=== PATIENT | male | born 1970 | race Caucasian/White ===

== ENCOUNTER → 2024-11-20 10:32 | Outpatient (REF) | payer SELFPAY | LOC: HWRAD 10:32 | PROVIDERS: ATTENDING PHYSICIAN Family Medicine | DX: E78.00 Pure hypercholesterolemia, unspecified (principal) | CPT/HCPCS: 75571 ==

== ENCOUNTER 2024-11-26 00:48 | Emergency (ER) | payer OTHER, SELFPAY ==
[2024-11-26 00:55] VITALS: BP 118/72
--- NOTE | 2024-11-26 01:46 | ED.GENMED ---
History of Present Illness
General
Chief Complaint: Extremity Pain (non-traumatic)
Source: patient
Time Seen by Provider: 11/26/24 01:26
History of Present Illness
History of Present Illness:
54-year-old male with past medical history of hyperlipidemia presenting to the ER for evaluation of intermittent paresthesia from the elbow distal for the last 2 to 3 days noting that the symptoms are intermittent, seemingly exacerbated when he is
holding his arm up away from his body, have made any worse with physical activity. He denies any trauma, focal weakness or numbness, chest pain, shortness of breath, lightheadedness or dizziness or any other concerns. No history of similar. He
does note a few days ago he had a CT coronary which showing minimal to mild cardiac disease. Family history included in his grandfather. Social history does noncontributory. Patient states his biggest reason for coming to the ER today was to
ensure his heart was okay.
Past History
Past History
ED Past Medical History: Hypercholesterolemia
ED Past Surgical History: None
Social History
Tobacco: Non-smoker
Alcohol: Occasional
Drug: None
Personal:
Living: with family
Employment: Employed
Family History
Family History: Hypertension
Review of Systems
Review of Systems
All Other Systems: ROS reviewed and negative except as documented in HPI and ROS
Phy Exam
Physical Exam
Physical Exam:
GENERAL: Alert , in no apparent distress
HEAD: Normocephalic atraumatic
EYE: conjunctiva clear
NECK: Supple
ENT: o/p clr, mmm.
CARDIAC: Regular rate and rhythm
LUNGS: Clear breath sounds bilaterally, no acute respiratory distress, no wheezes/rales/rhonchi
NEUROLOGICAL: Alert and oriented, moves all extremities, sensation grossly intact to light touch, strength 5 out of 5 bilaterally
SKIN: Warm and dry, skin intact.
MUSCULOSKELETAL: well perfused. Easily palpable radial pulse. Cap refill less than 2 seconds. Full range of motion of the extremity without pain or paresthesia
PSYCH: Normal and appropriate interaction.
Scores
Heart Failure Risk
Heart Failure Risk Score: Not Applicable
Heart Score for Chest Pain Patients
STEMI patient?: Not applicable
Withdrawal Assessment of Alcohol
Withdrawal Assessment Completed?: Not applicable
Course
Orders/Labs/Results
Orders:
Orders
11/26/24 00:59
ECG [Electrocardiogram (*1)] Urgent
Reason for Study: Other
Other Reason for Exam: LEFT LOWER ARM PAIN
11/26/24 01:00
EKG- Treatment ONCE
Vital Signs
Initial and Last Documented VS:
Initial Vital Signs
Temp Pulse Resp BP Pulse Ox
98 F 54 18 118/72 98
11/26/24 00:55 11/26/24 00:55 11/26/24 00:55 11/26/24 00:55 11/26/24 00:55
Last Documented Vital Signs
Temp Pulse Resp BP Pulse Ox
98 F 54 18 118/72 98
11/26/24 00:55 11/26/24 00:55 11/26/24 00:55 11/26/24 00:55 11/26/24 01:47
MDM/Problems Addressed
Differential Diagnosis Includes:
Peripheral Neuropathy
Radiculopathy
Spinal Stenosis
Medial/lateral epicondylitis
Forearm strain
DVT
SVT
Overall, minimal suspicion for ACS
MDM/Problems Addressed:
54-year-old male presenting the ER for intermittent paresthesia from the elbow distal for the last 2 to 3 days, seemingly worse with different positions of the extremity. Asymptomatic here. EKG done in triage shows a sinus bradycardia but no
ischemic changes. I did offer to perform blood work including a troponin however patient declines. He ultimately states he feels comfortable following up with his primary care provider as an outpatient. Discussed return precautions to the ER.
Stable for discharge home.
*Pulse Oximetry
SaO2: 98
Oxygen Mode of Delivery: Room air
Patient hypoxic: no
*EKG
Heart Rate: 52
Rate: bradycardiac
Rhythm: sinus
Jackson: normal axis
Ischemia: no ischemia
*Critical Care Note
Total Time (30-74mins, 75-104mins- exclusive of procedures): Not Applicable
Data Reviewed
Review of Other/Old Records Reveals: Labs, Records and Radiology Studies
ED Attending Note
-
Portions of this chart may have been created with voice recognition software.� Occasional wrong word or��sound alike� substitutions may have occurred due to the inherent limitations of voice recognition software.
Discharge Plan
Departure
Patient Disposition: Home (Routine Discharge)
Date of Disposition: 11/26/24
Time of Disposition: 01:46
Patient with high blood pressure during this ER visit?: No
Discharge Problem:
Paresthesia of left arm
Instructions: Peripheral neuropathy
Prescriptions:
No Action
No Meds [No Current Medications]
0
ibuprofen 600 MG tablet
600 mg PO Q6H Qty: 30 0RF
acetaminophen-codeine 12 MG/5 ML solution
5 ml PO Q4HPRN PRN (Reason: pain) Qty: 100 0RF
Rx Instructions:
120 mg and 12 mg/5 ml
cephalexin 500 MG capsule
500 mg PO QID Qty: 39 0RF
Interventions
Interventions:
*Risk Screen - Suicide Last Done: 11/26/24 00:55
*General Assessment Last Done: 11/26/24 01:30
*Neglect/Abuse Screening Last Done: 11/26/24 00:55
*Nursing Disposition Last Done: 11/26/24 02:20
ED-Skin Assessment Last Done: 11/26/24 01:26
ED-Peripheral Vascular Assessment Last Done: 11/26/24 01:26
ED-Musculoskeletal Assessment Last Done: 11/26/24 01:26
Discharge Date and Time
Print Language: [id number]
== END 2024-11-26 02:20 | disposition home or self-care (01) ==
LOC: EMR 00:48
PROVIDERS: EMERGENCY PHYSICIAN Emergency Medicine; FAMILY PHYSICIAN Family Medicine
DX: R20.2 Paresthesia of skin (principal); R00.1 Bradycardia, unspecified; E78.00 Pure hypercholesterolemia, unspecified; Z82.49 Family history of ischemic heart disease and other diseases of the circulatory system
CPT/HCPCS: 99283; 93005

== ENCOUNTER → 2024-12-14 07:51 | Outpatient (REF) | payer OTHER, SELFPAY | LOC: RAD 07:51 | PROVIDERS: ATTENDING PHYSICIAN Family Medicine | DX: R59.0 Localized enlarged lymph nodes (principal) | CPT/HCPCS: 71260; Q9967 ==

== ENCOUNTER 2025-01-08 06:31 | Day surgery (SDC) | payer OTHER, SELFPAY ==
[2025-01-08] VITALS (7 sets, daily range): BP systolic 115–144; BP diastolic 61–86; BMI 25.1
[2025-01-08 18:19] LABS: Brochalveolar Lavage Character Hazy (Clear); Brochalveolar Lavage Color Pink; Brochalveolar Lavage Volume 12 ml; Brochalveolar Lavage WBC 37000 cells/ml
[2025-01-09 07:56] LABS: BAL Lining Cells 29 %
== END 2025-01-08 17:20 | disposition home or self-care (01) ==
LOC: SDS 06:31
PROVIDERS: ATTENDING PHYSICIAN Internal Medicine
DX: R59.0 Localized enlarged lymph nodes (principal)
CPT/HCPCS: 31629; 71045; 87070; 87102; 87116; 87205; 88112; 88173; 88305; 88312; 89051